=== PATIENT | male | born 1975 | race Hispanic/Latino ===

== ENCOUNTER 2017-04-19 05:00 | Inpatient (IN) | payer BC, MEDICAID ==
[2017-04-19 05:09] VITALS: BMI 33.4
[2017-04-19] MEDS ORDERED: Sodium Chloride 0.9% 1,000 ML IV STA (05:12)
[2017-04-19] MEDS ORDERED: Albuterol-Ipratrop 3 mg / 0.5 (3 ml) UD IH SCH ×2 (05:15→14:00)
[2017-04-19] MEDS: Ipratropium 0.02% Inhal Soln (0.5 mg/2.5 ml) UD IH SCH ×3 (05:18→06:23)
[2017-04-19] MEDS ORDERED: Magnesium Sulfate 2 GM in Sodium Chloride 0.9% 100 ML IVPB ONE (05:29)
--- NOTE | 2017-04-19 05:38 | ED PDOC ---
Arrival/HPI - General Chief Complaint: Shortness Of Breath Time Seen by Provider: 04/19/17 05:06 Historian: Patient - History of Present Illness Narrative History of Present Illness (Text): 04/19/17 05:34 Patient is a 42M with a PMH including asthma and chronic back and leg pain for which he has an implantable nerve stimulator comes to the ED with SOB that occured while he was watching TV at approx 1am. At that time he went to look for his albuterol inhaler but could not find it. He went to wake up his girlfriend to ask where it was but she did not know. She offered him her Breo inhaler but he refused. He then walked down one flight of stairs to his car where he found his inhaler. He took 2 puffs at that time and then continued to climb the stairs to his apartment. He had to stop on the stair due to SOB. He took another 2 puffs of his inhaler with no relief. He continued to climb the stairs to his girlfriends apartment where she called and ambulance. Symptom Onset: Sudden Symptom Course: Unchanged Activities at Onset: Rest Context: Sitting, Standing, Walking Past Medical History - Past History Past History: No Previous - Infectious Disease Hx of Infectious Diseases: None - Tetanus Immunization Tetanus Immunization: Up to Date - Cardiac Hx Cardiac Disorders: No - Pulmonary Hx Respiratory Disorders: Yes Hx Asthma: Yes - Neurological Hx Neurological Disorder: No - HEENT Hx HEENT Disorder: No - Renal Hx Renal Disorder: No - Endocrine/Metabolic Hx Endocrine Disorders: No - Hematological/Oncological Hx Blood Disorders: Yes Hx Cancer: Yes (left testicle) - Integumentary Hx Dermatological Disorder: No - Musculoskeletal/Rheumatological Hx Musculoskeletal Disorders: Yes Hx Arthritis: Yes Hx Back Pain: Yes (nerve stimulator) Hx Spinal Stenosis: Yes Other/Comment: spinal stimulator rods/pins in back - Gastrointestinal Hx Gastrointestinal Disorders: Yes Hx Gastritis: Yes - Genitourinary/Gynecological Hx Genitourinary Disorders: No - Psychiatric Hx Anxiety: Yes Hx Depression: Yes Hx Substance Use: No - Past Surgical History Past Surgical History: No Previous - Surgical History Hx Orthopedic Surgery: Yes (right foot spur,spinal cage-2013) - Anesthesia Hx Anesthesia: Yes Hx Anesthesia Reactions: No Hx Malignant Hyperthermia: No - Suicidal Assessment Feels Threatened In Home Enviroment: No Family/Social History Family/Social History: Unknown Family HX Smoking Status: Never Smoked Hx Alcohol Use: No Hx Substance Use: No Hx Substance Use Treatment: No Allergies/Home Meds Allergies/Adverse Reactions: Allergies No Known Allergies Allergy (Verified 04/19/17 05:10) Home Medications: Home Meds Medication Instructions Recorded Confirmed Acetaminophen/Oxycodone Hydr 1 tab PO Q6H 10/17/13 04/19/17 [Percocet 10/325 mg Tab] Amitriptyline Hydrochloride 50 mg PO TID 10/17/13 04/19/17 [Elavil] Gabapentin 800 mg PO TID 10/17/13 04/19/17 Albuterol Sulfate 3 ml IH PRN PRN 10/29/13 04/19/17 Oxycodone Hydrochloride [Oxycontin] 30 mg PO 5XD 10/29/13 04/19/17 Pro Air 1 inh INH PRN PRN 10/29/13 04/19/17 clonazePAM [Klonopin] 1 mg PO TID 10/29/13 04/19/17 Review of Systems - Review of Systems Constitutional: Normal Eyes: Normal ENT: Normal Respiratory: SOB, Cough, Wheezing Cardiovascular: absent: Chest Pain Gastrointestinal: Normal Genitourinary Male: Normal Musculoskeletal: Back Pain Skin: Normal Neurological: Normal Endocrine: Normal Hemo/Lymphatic: Normal Psychiatric: Normal Physical Exam Vital Signs Pulse Resp BP Pulse Ox 04/19/17 05:09 116 H 14 154/96 H 97 Temperature: Afebrile Blood Pressure: Normal Pulse: Tachycardic Respiratory Rate: Tachypneic Appearance: Positive for: Well-Appearing, Non-Toxic Pain Distress: None Mental Status: Positive for: Alert and Oriented X 3 - Systems Exam Head: Present: Atraumatic, Normocephalic Pupils: Present: PERRL Extroacular Muscles: Present: EOMI Conjunctiva: Present: Normal Mouth: Present: Moist Mucous Membranes Neck: Present: Normal Range of Motion Respiratory/Chest: Present: Good Air Exchange, Wheezes, Rhonchi. No: Clear to Auscultation, Respiratory Distress, Accessory Muscle Use, Decreased Breath Sounds, Rales, Retracting, Tachypneic, Tender to Palpation, Other Cardiovascular: Present: Regular Rate and Rhythm, Tachycardic Abdomen: Present: Tenderness, Normal Bowel Sounds. No: Distention, Peritoneal Signs Upper Extremity: Present: Normal Inspection. No: Cyanosis, Edema Lower Extremity: Present: Normal Inspection. No: Edema Neurological: Present: GCS=15, CN II-XII Intact, Speech Normal Skin: Present: Warm, Dry, Normal Color. No: Rashes Psychiatric: Present: Alert, Oriented x 3, Normal Insight, Normal Concentration Medical Decision Making - Lab Interpretations Lab Results: 04/19/17 06:00 04/19/17 06:00 Lab Results 04/19/17 06:00: Sodium 145, Potassium 3.2 L, Chloride 107, Carbon Dioxide 28, Anion Gap 14, BUN 11, Creatinine 0.8, Est GFR ( Amer) > 60, Est GFR (Non- Af Amer) > 60, Random Glucose 129 H, Calcium 9.8, Total Bilirubin 0.5, AST 31, ALT 34, Alkaline Phosphatase 64, Lactate Dehydrogenase 464, Total Creatine Kinase 1054 H, CK-MB (CK-2) Pending, CK-MB (CK-2) % Pending, Troponin I Pending , Total Protein 7.2, Albumin 3.8, Globulin 3.4, Albumin/Globulin Ratio 1.1 04/19/17 06:00: WBC 6.8, RBC 4.43, Hgb 12.8 L, Hct 38.5 L, MCV 86.9, MCH 28.9, MCHC 33.2, RDW 13.0, Plt Count 201, MPV 9.6, Gran % 54.7, Lymph % (Auto) 34.1, [place] % (Auto) 7.3 H, Eos % (Auto) 3.6, Baso % (Auto) 0.3, Gran # 3.70, Lymph # ( Auto) 2.3, [place] # (Auto) 0.5, Eos # (Auto) 0.2, Baso # (Auto) 0.02 - RAD Interpretation Radiology Orders: 04/19/17 05:09 CHEST PORTABLE [RAD] Stat - Medication Orders Current Medication Orders: Azithromycin (Zithromax 500mg In Ns) 500 mg in 250 mls @ 167 mls/hr IVPB STAT STA PRN Reason: Protocol Stop: 04/19/17 07:11 Last Admin: 04/19/17 06:23 Dose: 167 mls/hr eMAR Start Stop Document 04/19/17 06:23 GENNY (Rec: 04/19/17 06:24 [place] [id number]) Intravenous Solution Start Date 04/19/17 Start Time 06:23 End Date 04/19/17 End time 07:23 Total Infusion Time 60 Discontinued Medications Sodium Chloride (Sodium Chloride 0.9%) 1,000 mls @ 999 mls/hr IV .Q1H1M STA Stop: 04/19/17 06:12 Last Admin: 04/19/17 06:24 Dose: 999 mls/hr eMAR Start Stop Document 04/19/17 06:24 GENNY (Rec: 04/19/17 06:25 GENNY [place] [id number]) Intravenous Solution Start Date 04/19/17 Start Time 06:25 End Date 04/19/17 End time 07:25 Total Infusion Time 60 Magnesium Sulfate 2 gm/ Sodium (Chloride) 104 mls @ 102 mls/hr IVPB ONCE ONE Stop: 04/19/17 06:30 Last Admin: 04/19/17 06:24 Dose: 102 mls/hr eMAR Start Stop Document 04/19/17 06:24 GENNY (Rec: 04/19/17 06:24 GENNY [place] [id number]) Intravenous Solution Start Date 04/19/17 Start Time 06:24 End Date 04/19/17 End time 07:24 Total Infusion Time 60 Ipratropium [place] (Atrovent) 0.5 mg IH Q15M ALEXSANDER Stop: 04/19/17 05:46 Last Admin: 04/19/17 06:23 Dose: 0.5 mg Methylprednisolone (Solu-Medrol) 125 mg IVP STAT STA Stop: 04/19/17 05:10 Last Admin: 04/19/17 06:23 Dose: 125 mg IVP Administration Document 04/19/17 06:23 GENNY (Rec: 04/19/17 06:23 GENNY [place] [id number]) Charges for Administration # of IVP Administrations 1 Oxycodone/Acetaminophen (Percocet 5/325 Mg Tab) 1 tab PO STAT STA Stop: 04/19/17 06:18 Last Admin: 04/19/17 06:24 Dose: 1 tab MAR Pain Assessment Document 04/19/17 06:24 GENNY (Rec: 04/19/17 06:24 GENNY [place] [id number]) Pain Reassessment Is this a pain reassessment? No - PA / ASSOCIATE DESIGNER / Resident Statement MD/DO has reviewed & agrees with the documentation as recorded. MD/DO has examined the patient and agrees with the treatment plan. Disposition/Present on Arrival - Present on Arrival Any Indicators Present on Arrival: No History of DVT/PE: No History of Uncontrolled Diabetes: No Urinary Catheter: No History of Decub. Ulcer: No History Surgical Site Infection Following: None - Disposition Have Diagnosis and Disposition been Completed?: Yes Diagnosis: Asthma exacerbation Disposition: HOSPITALIZED Disposition Time: 06:47 Patient Plan: Admission Condition: GUARDED Forms: [employer] ([place])
[2017-04-19] MEDS ORDERED: Azithromycin 500MG/NS 250ml 500 MG/250 ML BAG IVPB STA (05:42)
[2017-04-19] MEDS ORDERED: Oxycodone/Acetaminophen 5/325 mg Tab PO STA (06:17)
[2017-04-19] MEDS ORDERED: Oxycodone/Acetaminophen 5/325 mg Tab ONE (06:21)
[2017-04-19 06:30] LABS: BASO # 0.02 K/mm3 (0.0-2.0); BASO % 0.3 % (0.0-3.0); EOS # 0.2 (0.0-0.7); EOS % 3.6 % (1.5-5.0); GRAN # 3.7 (1.4-6.5); GRAN % 54.7 % (50.0-68.0); HEMOGLOBIN 12.8 g/dL (14.0-18.0); LYMPH # 2.3 (1.2-3.4); LYMPH % 34.1 % (22.0-35.0); MEAN CELL VOLUME 86.9 fl (80.0-105.0); MEAN CORPUSCULAR HEMOGLOBIN 28.9 pg (25.0-35.0); MEAN CORPUSCULAR HGB CONC 33.2 g/dl (31.0-37.0); MEAN PLATELET VOLUME 9.6 fl (7.0-11.0); MONO # 0.5 (0.1-0.6); MONO % 7.3 % (1.0-6.0); RBC 4.43 10^6/uL (3.5-6.1); WHITE BLOOD COUNT 6.8 10^3/ul (4.5-11.0)
[2017-04-19 06:42] LABS: ALB/GLOB RATIO 1.1 (1.1-1.8); ALBUMIN 3.8 g/dL (3.0-4.8); ALT/SGPT 34 U/L (7-56); AST/SGOT 31 U/L (17-59); BLOOD UREA NITROGEN 11 mg/dL (7-21); CALCIUM 9.8 mg/dL (8.4-10.5); GFR AFRICAN-AMERICAN > 60; GFR NON-AFRICAN AMERICAN > 60
[2017-04-19] MEDS ORDERED: Potassium Chloride 20 mEq ER Tab PO STA (06:48)
[2017-04-19 06:53] LABS: TROPONIN I < 0.01 ng/mL
[2017-04-19 07:21] LABS: CK MB% 0.8 % (2.5-3.0); CK-MB 8.8 ng/mL (0.0-3.6)
[2017-04-19 07:38] VITALS: BP 125/72; PULSE 117; RESP 18; O2SAT 99
--- NOTE | 2017-04-19 07:38 | CP.PCM.HP ---
<EliasLaquita - Last Filed: 04/19/17 11:11> History of Present Illness - History of Present Illness History of Present Illness: PGY-[address] Card Admission: Asthma exacerbation Mr Huynh, 42M, PMHx Asthma, chronic back pain, gerd/gastritis, testicular cancer , C/O wheezes, dyspnea, and dry coughs. Pt started wheezes at 9am, ate peanut butter sandwiches, watch TV. At 1am, he felt the need to get his inhaler, which was left in the car. He walked down one flight of stairs to his car where he found his inhaler. He took 2 puffs at that time and then continued to climb the stairs to his apartment. He had to stop on the stair due to SOB with dry cough, not being able to talk/complete a full sentence, laying on the floor for 15 minutes to gather strength to climb stairs back home. He took another 2 puffs of his inhaler with no relief. He continued to climb the stairs to his girlfriends apartment where she called and ambulance. Associated symptoms include lightheaded, dry cough, drooling, SOB, which mostly resolved As baseline, pt use albuterol inhaler/nebulizer once weekly. Never intubated. No hospitalization in past year. Pt uses 2 pillows, able to ambulate 1-2 flights of stairs wihtout SOB ROS Denies recent sickness, hiking, moldy environment, exposure to environmental allegent, travel Denies fever, chills, chest pain. (+) cough, dry, (+) SOB (+) acid reflux. Denies N/V/D/C/abdominal pain (+) chronic back pain, (+) sligh swelling R hand x 1 week PMH Asthma Chronic back/leg pain s/p implantable nerve stimulator and lumbar fusion, steroid injection L testicular cancer, Dx age 21, s/p radiation and L testicular removal Gerd/Gastritis Depression PSH right foot spur removal 2011 spinal/lumbar fusion, May 2012 FH Mom-chain smoker dad - skin cancer daughter - spinabifida SH denies ever smoke. (+) 2nd hand smoke in childhood. Last use marijunan 7 years ago. denies drink/drug live with girlfriend and 4 kids (2 from girlfriend, 2 from pt) ambulate with cane All NKDA Med Proair PRN/neb Oxycodone 30 Q4 Fentynl patch 75mcg Q3day Zodipem 10 HS Xanax 1q6h ? Methadone 10mg QD amitriptyline 50 TID Gabapentin 800 TID PMD None Pain Mgmt Dr Ayers, [facility] [place] VS T normal. HR 116. 154/96, RR 24, 97% RA PE 2 fentyl patches at pack. wheezes. Lab CBC, K 3.2, CK 1054, trop < 0.01, flu neg CXR: neg EKG: tachycardia with incomplete RBBB. QTc 469 ED: Magnesium 2gm, Solu-medrol 125, 1 percocet, azithromycin, NS 1L Present on Admission - Present on Admission Any Indicators Present on Admission: No Past Patient History - Infectious Disease Hx of Infectious Diseases: None - Tetanus Immunizations Tetanus Immunization: Up to Date - Past Medical History & Family History Past Medical History?: Yes - Past Social History Smoking Status: Never Smoked - CARDIAC Hx Cardiac Disorders: No - PULMONARY Hx Respiratory Disorders: Yes Hx Asthma: Yes - NEUROLOGICAL Hx Neurological Disorder: No - HEENT Hx HEENT Problems: No - RENAL Hx Chronic Kidney Disease: No - ENDOCRINE/METABOLIC Hx Endocrine Disorders: No - HEMATOLOGICAL/ONCOLOGICAL Hx Blood Disorders: Yes Hx Cancer: Yes (left testicle) - INTEGUMENTARY Hx Dermatological Problems: No - MUSCULOSKELETAL/RHEUMATOLOGICAL Hx Musculoskeletal Disorders: Yes Hx Arthritis: Yes Hx Back Pain: Yes (nerve stimulator) Hx Spinal Stenosis: Yes Other/Comment: spinal stimulator rods/pins in back - GASTROINTESTINAL Hx Gastrointestinal Disorders: Yes Hx Gastritis: Yes - GENITOURINARY/GYNECOLOGICAL Hx Genitourinary Disorders: No - PSYCHIATRIC Hx Anxiety: Yes Hx Depression: Yes Hx Substance Use: No - SURGICAL HISTORY Hx Orthopedic Surgery: Yes (right foot spur,spinal cage-2012) - ANESTHESIA Hx Anesthesia: Yes Hx Anesthesia Reactions: No Hx Malignant Hyperthermia: No Meds Allergies/Adverse Reactions: Allergies Allergy/AdvReac Type Severity Reaction Status Date / Time No Known Allergies Allergy Verified 04/19/17 05:10 Physical Exam - Constitutional Appears: No Acute Distress Additional comments: spoke in soft voice. able to complete full sentences - Head Exam Head Exam: ATRAUMATIC, NORMAL INSPECTION, NORMOCEPHALIC - Eye Exam Eye Exam: EOMI, Normal appearance, PERRL - ENT Exam ENT Exam: Mucous Membranes Moist, Normal Exam - Neck Exam Neck exam: Positive for: Normal Inspection - Respiratory Exam Respiratory Exam: Clear to Auscultation Bilateral, Wheezes, NORMAL BREATHING PATTERN - Cardiovascular Exam Cardiovascular Exam: REGULAR RHYTHM, +S1, +S2 - GI/Abdominal Exam GI & Abdominal Exam: Normal Bowel Sounds, Soft. absent: Tenderness - Extremities Exam Extremities exam: Negative for: calf tenderness, pedal edema - Back Exam Back exam: absent: CVA tenderness (L), CVA tenderness (R) Additional comments: 2 fentyl patches - Neurological Exam Neurological exam: Alert, Oriented x3 - Psychiatric Exam Psychiatric exam: Normal Affect, Normal Mood - Skin Skin Exam: Dry, Warm Results - Vital Signs Recent Vital Signs: Last Vital Signs Temp Pulse 116 H 04/19/17 05:09 Resp 24 04/19/17 05:11 BP 154/96 H 04/19/17 05:09 Pulse Ox 97 04/19/17 05:09 - Labs Result Diagrams: 04/19/17 06:00 04/19/17 06:00 Assessment & Plan - Assessment and Plan (Free Text) Plan: Mr Huynh, 42M, PMHx Asthma, chronic back pain, gerd/gastritis, testicular cancer , C/O wheezes, dyspnea, and dry coughs. He could not finish 1 sentences and collapsed on the floor to recouperate for 15 minutes. Proair failed to relieve symptpms. He was admitted for acute asthma exacerbation Acute ASthma exacerbation - steroid 40 Q12 - xopenx/ibratropium Q6sch, Q2 prn - no abx needed. S/p azithromycin x 1, 2g Mg in emergency room - flu negative - CXR negative Chronic back pain - resume home meds: fentynal - decrease oxycodone dose to Q6 - hold methadone, not filled last month per [place] drug monitor record HypoK - repleted elevated CK, likely from cough and sympatomemetic albuterol - recheck level tomorrow - monitor i/o - NS@100 with 10megK Hyperglycemia, likely from steroid use - no need to check A1C - ISSS-low - accuchek Insomnia - continue home ambien 10 HS prn Anxiety- continue home xanax 1q6 PVX - protonix, lovenox s/r/d/w Dr. Card <Era Card - Last Filed: 04/19/17 15:54> Results - Vital Signs Recent Vital Signs: Last Vital Signs Temp 97.4 F L 04/19/17 07:37 Pulse 117 H 04/19/17 07:37 Resp 18 04/19/17 07:37 BP 125/72 04/19/17 07:37 Pulse Ox 99 04/19/17 07:37 - Labs Result Diagrams: 04/19/17 06:00 04/19/17 06:00 Attending/Attestation - Attestation I have personally seen and examined this patient.: Yes I have fully participated in the care of the patient.: Yes I have reviewed all pertinent clinical information: Yes Notes (Text): 04/19/17 15:51 42 year old male with past medical history of asthma and chronic back pain who presented this morning with asthma exacerbation. He was admitted to the medical floor and started on iv steroids and xonenex/ iptratropium. He was on oxycodone and fentanyl patch for chronic back pain. Upon arrival to the floor he signed out against medical advice. Era Card MD Hospitalist.
[2017-04-19 07:42] VITALS: TEMP 97.4
[2017-04-19] MEDS ORDERED: Albuterol-Ipratrop 3 mg / 0.5 (3 ml) UD IH PRN (08:08)
--- NOTE | 2017-04-19 08:16 | RAD ---
HISTORY: SOB COMPARISON: 10/17/2013 FINDINGS: LUNGS: No active pulmonary disease. PLEURA: No significant pleural effusion identified, no pneumothorax apparent. CARDIOVASCULAR: Normal. OSSEOUS STRUCTURES: No significant abnormalities. VISUALIZED UPPER ABDOMEN: Normal. OTHER FINDINGS: None. IMPRESSION: No active disease.
[2017-04-19] MEDS ORDERED: Levalbuterol 1.25 MG/3 ML Inhal Soln UD IH PRN (09:18)
[2017-04-19] MEDS ORDERED: Ipratropium 0.02% Inhal Soln (0.5 mg/2.5 ml) UD IH PRN (09:18)
[2017-04-19] MEDS ORDERED: Enoxaparin 40 mg Syringe SC SCH (10:00)
--- NOTE | 2017-04-19 11:14 | CP.PCM.DIS ---
<EliasEdmundLaquita - Last Filed: 04/19/17 11:25> Provider - Provider Date of Admission: 04/19/17 06:55 Attending physician: Era Card MD Primary care physician: Heidi Rey MD Time Spent in preparation of Discharge (in minutes): 20 Hospital Course - Lab Results Lab Results: Most Recent Lab Values WBC 6.8 10^3/ul (4.5-11.0) 04/19/17 06:00 RBC 4.43 10^6/uL (3.5-6.1) 04/19/17 06:00 Hgb 12.8 g/dL (14.0-18.0) L 04/19/17 06:00 Hct 38.5 % (42.0-52.0) L 04/19/17 06:00 MCV 86.9 fl (80.0-105.0) 04/19/17 06:00 MCH 28.9 pg (25.0-35.0) 04/19/17 06:00 MCHC 33.2 g/dl (31.0-37.0) 04/19/17 06:00 RDW 13.0 % (11.5-14.5) 04/19/17 06:00 Plt Count 201 10^3/uL (120.0-450.0) 04/19/17 06:00 MPV 9.6 fl (7.0-11.0) 04/19/17 06:00 Gran % 54.7 % (50.0-68.0) 04/19/17 06:00 Lymph % (Auto) 34.1 % (22.0-35.0) 04/19/17 06:00 [place] % (Auto) 7.3 % (1.0-6.0) H 04/19/17 06:00 Eos % (Auto) 3.6 % (1.5-5.0) 04/19/17 06:00 Baso % (Auto) 0.3 % (0.0-3.0) 04/19/17 06:00 Gran # 3.70 (1.4-6.5) 04/19/17 06:00 Lymph # (Auto) 2.3 (1.2-3.4) 04/19/17 06:00 [place] # (Auto) 0.5 (0.1-0.6) 04/19/17 06:00 Eos # (Auto) 0.2 (0.0-0.7) 04/19/17 06:00 Baso # (Auto) 0.02 K/mm3 (0.0-2.0) 04/19/17 06:00 Sodium 145 mmol/L (132-148) 04/19/17 06:00 Potassium 3.2 mmol/L (3.6-5.0) L 04/19/17 06:00 Chloride 107 mmol/L (98-107) 04/19/17 06:00 Carbon Dioxide 28 mmol/L (21-33) 04/19/17 06:00 Anion Gap 14 (10-20) 04/19/17 06:00 BUN 11 mg/dL (7-21) 04/19/17 06:00 Creatinine 0.8 mg/dl (0.8-1.5) 04/19/17 06:00 Est GFR ( Amer) > 60 04/19/17 06:00 Est GFR (Non-Af Amer) > 60 04/19/17 06:00 Random Glucose 129 mg/dL (70-110) H 04/19/17 06:00 Calcium 9.8 mg/dL (8.4-10.5) 04/19/17 06:00 Total Bilirubin 0.5 mg/dL (0.2-1.3) 04/19/17 06:00 AST 31 U/L (17-59) 04/19/17 06:00 ALT 34 U/L (7-56) 04/19/17 06:00 Alkaline Phosphatase 64 U/L (38-126) 04/19/17 06:00 Lactate Dehydrogenase 464 U/L (333-699) 04/19/17 06:00 Total Creatine Kinase 1054 U/L (35-230) H 04/19/17 06:00 CK-MB (CK-2) 8.8 ng/mL (0.0-3.6) H 04/19/17 06:00 CK-MB (CK-2) % 0.8 % (2.5-3.0) L 04/19/17 06:00 Troponin I < 0.01 ng/mL 04/19/17 06:00 Total Protein 7.2 g/dL (5.8-8.3) 04/19/17 06:00 Albumin 3.8 g/dL (3.0-4.8) 04/19/17 06:00 Globulin 3.4 gm/dL 04/19/17 06:00 Albumin/Globulin Ratio 1.1 (1.1-1.8) 04/19/17 06:00 Influenza Typ A,B (EIA) Negative for flu a/b (NEGATIVE) 04/19/17 06:00 - Hospital Course Hospital Course: Mr Huynh, 42M, PMHx Asthma, chronic back pain, gerd/gastritis, testicular cancer , C/O wheezes, dyspnea, and dry coughs. Pt started wheezes at 9am, ate peanut butter sandwiches, watch TV. At 1am, he felt the need to get his inhaler, which was left in the car. He walked down one flight of stairs to his car where he found his inhaler. He took 2 puffs at that time and then continued to climb the stairs to his apartment. He had to stop on the stair due to SOB with dry cough, not being able to talk/complete a full sentence, laying on the floor for 15 minutes to gather strength to climb stairs back home. He took another 2 puffs of his inhaler with no relief. He continued to climb the stairs to his girlfriends apartment where she called and ambulance. Associated symptoms include lightheaded, dry cough, drooling, SOB, which mostly resolved. As baseline, pt use albuterol inhaler/nebulizer once weekly. Never intubated. No hospitalization in past year. Pt uses 2 pillows, able to ambulate 1-2 flights of stairs wihtout SOB. In the ED, VS stable except tachycardia @ 110-120. EKG: tachycardia with incomplete RBBB. QTc 469. In the ED, he was given Magnesium 2gm , Solu-medrol 125, 1 percocet, azithromycin, NS 1L. On exam, he still have wheezes on all lung hess, but able to complete full sentences without respiratory distress. He was admitted to med/surg floor for asthma exacerbation. His CK is elevated at 1054 likely from cough and albuterol use. He receives NS @ 100. On the floor, we started him on xopenex, solumedrol 40q12 , and his home pain meds. Pt decided to sign out AMA for personal reason. Care being refused. He is AAOx3, is ambulating, VS stable. He does not want any further examinations, tests, or treatments at this facility. Pt states that he will purse treatment on his own PMD, Dr. Paniagua, (on his medicaid card). Patient was told of risks of leaving AMA, namely rasthma exacerbation, respiratory distress, brain injury from low oxygen, other complications, including dealth. Pt states he understand what he is told but still wants to leave AMA. He was told to return to ER if needed and pt promised that he will call PMD within 1 week. His home medicine is verified at [place] drug monitoring. Discharge Exam - Head Exam Head Exam: ATRAUMATIC, NORMAL INSPECTION, NORMOCEPHALIC Discharge Plan - Follow Up Plan Condition: GUARDED Disposition: AGAINST MEDICAL ADVICE Instructions: Asthma (DC), Asthma (GEN) Referrals: Heidi Rey MD [Primary Care Provider] - <Era Card - Last Filed: 04/19/17 15:54> Provider - Provider Date of Admission: 04/19/17 06:55 Attending physician: Era Card MD Primary care physician: Heidi Rey MD Hospital Course - Lab Results Lab Results: Most Recent Lab Values WBC 6.8 10^3/ul (4.5-11.0) 04/19/17 06:00 RBC 4.43 10^6/uL (3.5-6.1) 04/19/17 06:00 Hgb 12.8 g/dL (14.0-18.0) L 04/19/17 06:00 Hct 38.5 % (42.0-52.0) L 04/19/17 06:00 MCV 86.9 fl (80.0-105.0) 04/19/17 06:00 MCH 28.9 pg (25.0-35.0) 04/19/17 06:00 MCHC 33.2 g/dl (31.0-37.0) 04/19/17 06:00 RDW 13.0 % (11.5-14.5) 04/19/17 06:00 Plt Count 201 10^3/uL (120.0-450.0) 04/19/17 06:00 MPV 9.6 fl (7.0-11.0) 04/19/17 06:00 Gran % 54.7 % (50.0-68.0) 04/19/17 06:00 Lymph % (Auto) 34.1 % (22.0-35.0) 04/19/17 06:00 [place] % (Auto) 7.3 % (1.0-6.0) H 04/19/17 06:00 Eos % (Auto) 3.6 % (1.5-5.0) 04/19/17 06:00 Baso % (Auto) 0.3 % (0.0-3.0) 04/19/17 06:00 Gran # 3.70 (1.4-6.5) 04/19/17 06:00 Lymph # (Auto) 2.3 (1.2-3.4) 04/19/17 06:00 [place] # (Auto) 0.5 (0.1-0.6) 04/19/17 06:00 Eos # (Auto) 0.2 (0.0-0.7) 04/19/17 06:00 Baso # (Auto) 0.02 K/mm3 (0.0-2.0) 04/19/17 06:00 Sodium 145 mmol/L (132-148) 04/19/17 06:00 Potassium 3.2 mmol/L (3.6-5.0) L 04/19/17 06:00 Chloride 107 mmol/L (98-107) 04/19/17 06:00 Carbon Dioxide 28 mmol/L (21-33) 04/19/17 06:00 Anion Gap 14 (10-20) 04/19/17 06:00 BUN 11 mg/dL (7-21) 04/19/17 06:00 Creatinine 0.8 mg/dl (0.8-1.5) 04/19/17 06:00 Est GFR ( Amer) > 60 04/19/17 06:00 Est GFR (Non-Af Amer) > 60 04/19/17 06:00 Random Glucose 129 mg/dL (70-110) H 04/19/17 06:00 Calcium 9.8 mg/dL (8.4-10.5) 04/19/17 06:00 Total Bilirubin 0.5 mg/dL (0.2-1.3) 04/19/17 06:00 AST 31 U/L (17-59) 04/19/17 06:00 ALT 34 U/L (7-56) 04/19/17 06:00 Alkaline Phosphatase 64 U/L (38-126) 04/19/17 06:00 Lactate Dehydrogenase 464 U/L (333-699) 04/19/17 06:00 Total Creatine Kinase 1054 U/L (35-230) H 04/19/17 06:00 CK-MB (CK-2) 8.8 ng/mL (0.0-3.6) H 04/19/17 06:00 CK-MB (CK-2) % 0.8 % (2.5-3.0) L 04/19/17 06:00 Troponin I < 0.01 ng/mL 04/19/17 06:00 Total Protein 7.2 g/dL (5.8-8.3) 04/19/17 06:00 Albumin 3.8 g/dL (3.0-4.8) 04/19/17 06:00 Globulin 3.4 gm/dL 04/19/17 06:00 Albumin/Globulin Ratio 1.1 (1.1-1.8) 04/19/17 06:00 Influenza Typ A,B (EIA) Negative for flu a/b (NEGATIVE) 04/19/17 06:00
[2017-04-19] MEDS ORDERED: Insulin Lispro (humaLOG) LOW Coverage SC SCH (11:30)
--- NOTE | 2017-04-19 11:35 | CARD ---
APPROVED REPORT EKG Measurement Heart [id number] <Conclusion> Sinus tachycardia Incomplete right bundle branch block Nonspecific T wave abnormality Prolonged QTc
[2017-04-19] MEDS ORDERED: oxyCODONE 30 mg Immediate Release Tab PO SCH (12:00)
[2017-04-19] MEDS ORDERED: Ipratropium 0.02% Inhal Soln (0.5 mg/2.5 ml) UD IH SCH (14:00)
[2017-04-19] MEDS ORDERED: Levalbuterol 1.25 MG/3 ML Inhal Soln UD IH SCH (14:00)
[2017-04-19] MEDS ORDERED: MethylPREDNISolone 40 mg Vial IVP SCH (22:00)
[2017-04-20] MEDS ORDERED: Pantoprazole 40 mg EC Tab PO SCH (06:00)
== END 2017-04-19 11:04 | disposition left against medical advice (07) | DRG 97 ==
LOC: ED 05:00 → OBSVTOIN 06:55 → ERH 06:55 → 5RSO 08:42
PROVIDERS: ADMIT Internal Medicine; ATTEND Internal Medicine
DX: J45.901 Unspecified asthma with (acute) exacerbation (principal); F32.89 Other specified depressive episodes; I45.10 Unspecified right bundle-branch block; K21.9 Gastro-esophageal reflux disease without esophagitis; K29.70 Gastritis, unspecified, without bleeding; Z85.47 Personal history of malignant neoplasm of testis; Z92.3 Personal history of irradiation; Z80.8 Family history of malignant neoplasm of other organs or systems; M54.9 Dorsalgia, unspecified; M79.609 Pain in unspecified limb; M19.90 Unspecified osteoarthritis, unspecified site; R40.2412 Glasgow coma scale score 13-15, at arrival to emergency department; G47.00 Insomnia, unspecified; F41.9 Anxiety disorder, unspecified